=== PATIENT | female | born 1970 | race Caucasian/White ===

== ENCOUNTER 2016-08-04 06:20 | Inpatient (IN) | payer BC ==
[~2016-08-04] VITALS: Ht 162.6 cm; Wt 82.6 kg
--- NOTE | ~2016-08-04 | FD ---
ADMIT: 08/04/2016 RM/LOC: 221 [facility] MR#: [id number] [address] LU YOHANNES Betty [address] [place] [id number] Final Diagnosis SEX: F AGE: 45 : 1970 ADMISSION DATE: 08/04/2016 DISCHARGE DATE: 08/06/2016 FINAL DIAGNOSIS: Term vaginal delivery of viable male at 1758 on 08/04/2016. The patient had a partial third-degree perineal laceration that was repaired and there were no other complicating factors during the labor and delivery. The patient had complicated care due to advanced maternal age, anti E isoimmunization, and also polyhydramnios. She followed with both myself and Maternal Medicine. She was induced at term due to the maternal age and polyhydramnios. Induction was with IV Pitocin and then she also had spontaneous rupture of membranes. Again, delivery was uncomplicated. The patient was given her Rhophylac on the day of delivery after the 's blood type was confirmed to be Rh positive. On 08/06, she was dismissed home. I do note that hemoglobin on dismissal was 10.0, platelet count was normal. She will follow up with myself for her six week visit. Negar Yung MD/ eliana JOB #: [id number] CC: Negar Yung MD, Attending Physician Negar Yung MD, Family Physician
[~2016-08-04 06:20] MED LIST: PRENATAL VITAM1 EAC1 PO
[2016-08-07] MEDS ORDERED: NIPPLECREAM TP (17:27)
[2016-08-07] MEDS ORDERED: COLACE-DPS100 MG PO (17:27)
[2016-08-07] MEDS ORDERED: TYLENOL EXTRA500 M1 PO (17:28)
[2016-08-07] MEDS ORDERED: LAN-O-SOOTHE7 GM TP (17:28)
[2016-08-07] MEDS ORDERED: DERMOPLAST SPRA56 GM TP (17:28)
--- NOTE | 2016-08-07 23:13 | OR ---
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 POSTOPERATIVE DIAGNOSES: Viable male infant, delivered at 1758 with scores of 8 at 1 minute and 9 at 5 minutes, weighing 3960 g or 8 pounds 13 ounces. ESTIMATED BLOOD LOSS: 250 mL. PROCEDURE: Midline episiotomy with small extension to partial third-degree laceration. DESCRIPTION OF PROCEDURE: Yohannes presented on the morning of 08/04/2016 for planned induction of labor at term. EDC was 08/03 and she was followed by Maternal- Medicine as well as myself during her for complications of advanced maternal age, polyhydramnios, and anti-E isoimmunization. She did not have amniocentesis or quad screen testing as her and her declined that. Anatomical ultrasounds were normal. She had diagnosis of polyhydramnios in the third trimester. Nonstress tests were performed biweekly from about 32 weeks on. On presentation, she was 3.5 cm, still a thick cervix and -2, but ballotable vertex. Pitocin was started. At 1545, she was 5 cm, 50% effaced, and -2 station and had spontaneous rupture of membranes shortly before that. When I examined her, there was copious clear fluid noted. The head had come down, was well applied. She had Pitocin at a maximum of 12, but we started turning that down as her labor began to progress more rapidly after this point. She delivered at 1758 after her stage II of about 10 minutes. Baby was in the PARI position. Body delivered easily. There was nuchal cord x1 that was reduced. He was vigorous and laid up on mom's abdomen. There was delayed cord clamp and then it was cut by the father. She delivered placenta in about 7 minutes, was intact with three-vessel cord. On inspection, there was the midline episiotomy with partial third-degree extension. This was infiltrated with lidocaine and repaired with good hemostasis. We will use routine cares. When I left the room, both mom and baby were doing well. Baby was breast feeding. His doctor is Dr. Connor. Negar Yung MD/ jignesh JOB #: [id number] CC: Negar Yung MD, Attending Physician ADMIT: 08/04/2016 RM/LOC: 221 [facility] MR#: [id number] [address] YOHANNES LEIGH [address] [place] [address] Operative/Delivery Room Report SEX: F AGE: 45 : 1970 Negar Yung MD, Family Physician
== END 2016-08-06 12:25 | disposition home or self-care (01) | DRG 775 ==
LOC: BC 06:20 → 2LDRP 06:21 → BC 06:30 → 2LDRP 06:30
PROVIDERS: ADMIT Family Medicine
PROC: 3E033VJ Introduction of Other Hormone into Peripheral Vein, Percutaneous Approach (ICD-10-PCS; principal; 2016-08-04)
PROC: 0W8NXZZ Division of Female Perineum, External Approach (ICD-10-PCS; principal; 2016-08-04)
PROC: 10E0XZZ Delivery of Products of Conception, External Approach (ICD-10-PCS; principal; 2016-08-04)
PROC: 0DQR0ZZ Repair Anal Sphincter, Open Approach (ICD-10-PCS; principal; 2016-08-04)
PROC: 3E0234Z Introduction of Serum, Toxoid and Vaccine into Muscle, Percutaneous Approach (ICD-10-PCS; principal; 2016-08-04)
DX: O40.3XX0 Polyhydramnios, third trimester, not applicable or unspecified (principal); O70.20 Third degree perineal laceration during delivery, unspecified; O36.0930 Maternal care for other rhesus isoimmunization, third trimester, not applicable or unspecified; O99.824 Streptococcus B carrier state complicating childbirth; O69.81X0 Labor and delivery complicated by cord around neck, without compression, not applicable or unspecified; Z3A.40 40 weeks gestation of pregnancy; Z37.0 Single live birth